=== PATIENT | male | born 1970 | race American Indian/Alaskan Native ===

== ENCOUNTER 2019-04-11 08:52 | Emergency (ER) | payer SELFPAY ==
[2019-04-11 09:00] VITALS: BP 120/85
--- NOTE | 2019-04-11 10:18 | Emergency Department Report ---
Chief Complaint: Extremity Problem,Nontraumatic Stated Complaint: PAIN FINGER TIPS/FOOT PAIN Time Seen by Provider: 04/11/19 10:11 - HPI History of Present Illness: Patient reported that his fingers and toes are numb and that he just traveled via bus from [place] to [place] and they had air conditioner on an bus. He is requested something for pain. Denies any medical history but reports history of schizophrenia. He denies diabetes. Denies any history of numbness or tingling to his fingers. - ROS Review of Systems: All systems are negative unless stated in HPI above - Exam Vital Signs: Vital Signs 04/11/19 08:59 Temperature 98.3 F Pulse Rate 96 H Respiratory 16 Rate Blood Pressure 120/85 [Right] O2 Sat by Pulse 96 Oximetry Physical Exam: Gen.: This is a 48-year-old male well-nourished well-developed in no acute distress. Extremities/musculoskeletal: no clubbing, cyanosis or edema. +2 pulses to all extremities. No neurovascular compromise. Full range of motion to all extremities. No bony abnormality. No calf tenderness. Negative Homans sign Neuro. GCS is 15, alert and oriented 3, normal gait and no motor or sensory deficit. MSE screening note: Focused history and physical exam performed. Patient discussed with doctor:: JODY CHANDLER ED Medical Decision Making - Medical Decision Making Due to findings the following was ordered: I explained the patient that his condition is not an emergency and he will need to follow up with neurologist to start with primary care physician [facility] and if his condition worsens to have primary care at the outside [facility] refer him to an urologist. This has been going on for the last few days since he traveled 6 days from [facility] to [place] on the bus. Patient has low risk for DVT or PE based on perk roll and whilst criteria. Patient voiced understanding and he was given template for sats at [facility] along with X prescription card ED Disposition for MSE Clinical Impression: Numbness and tingling of upper and lower extremities of both sides Disposition: MED SCREENING EXAM-LEFT Is pt being admited?: No Does the pt Need Aspirin: No Condition: Stable
== END 2019-04-11 11:34 | disposition left against medical advice (07) ==
LOC: ED 08:52
DX: R20.0 Anesthesia of skin (principal); R20.2 Paresthesia of skin